=== PATIENT | female | born 1980 | race Caucasian/White ===

== ENCOUNTER 2025-05-31 10:59 | Outpatient (AMB) | payer BC, SELFPAY ==
--- NOTE | 2025-05-31 11:12 | MHC.OFFVIS ---
Intake Visit Reasons: right leg weakness HPI Comments Details: The patient is a 44 year old female presenting with lower back pain. She reports that in January, she experienced severe lower back pain that radiated down her right leg, which was associated with an inability to lift her right leg while lying flat. Her symptoms improved over time with gentle walks. A referral for an MRI was denied by her insurance, and she did not pursue physical therapy due to a negative past experience. For the past few weeks, the patient has been experiencing similar, though less severe, symptoms on her left side with pain in her lower back and around her hip. She also reports associated weakness and difficulty lifting her left leg straight up. She has no history of trauma or accidents and denies any difficulty with urination. She has tried to remain active with walking and hiking, but finds her symptoms can flare up with activity. Review of Systems Narrative Constitutional:?No fever, chills, fatigue, weight loss, or night sweats. HEENT:?No headache, vision changes, hearing loss, nasal congestion, sore throat. Cardiovascular:?No chest pain, palpitations, orthopnea, PND, or leg swelling. Respiratory:?No cough, shortness of breath, wheezing, or hemoptysis. Gastrointestinal:?No nausea, vomiting, abdominal pain, diarrhea, or constipation. Genitourinary:?No dysuria, frequency, incontinence, or hematuria. Musculoskeletal:? Complained of low back pain. Neurological:? Complain of low back pain and sometimes leg pain. Psychiatric:?No anxiety, depression, mood swings, sleep disturbance, or hallucinations. Endocrine:?No heat/cold intolerance, polydipsia, polyuria, or hair/skin changes. Hematologic/Lymphatic:?No easy bruising, bleeding, or lymphadenopathy. Integumentary (Skin):?No rash, lesions, itching, or color changes. Allergic/Immunologic:?No seasonal allergies, hives, or recurrent infections. Physical Exam Neuro Other: Mental Status: Alert and oriented to person, place, and time. Normal attention. Normal spontaneous speech, fluency, and comprehension. No obvious issues with mood and memory. Affect is appropriate. Cranial Nerves: CN II: Visual breaux full to confrontation, visual acuity intact. CN III, IV, : Pupils equal, round, reactive to light and accommodation. Extraocular movements are normal. CN V: Facial sensation is normal. CN VII: Facial movements symmetrical. CN VIII: Hearing intact to bedside conversation is normal. CN IX, X: Palate elevates symmetrically. CN XI: Shoulder shrug and head turn symmetrical. CN XII: Tongue midline without atrophy or fasciculations. Motor: Bulk and tone normal in all extremities. No significant muscle weakness in arms and legs. No drift. Reflexes: Deep tendon reflexes 2+ and symmetric. Plantar response down-going bilaterally. Coordination: [id number] and [id number]-[id number] testing normal. No dysmetria. Gait and Station: No obvious gait abnormality. No ataxia or instability. Sensory: Intact to light touch, pinprick, and vibration. Romberg is negative. Extrapyramidal: Full facial expressions and blinking. No rigidity. Movements are appropriate with no tremor or abnormality. Speech: Normal; no dysarthria or tremor. 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 We discussed that an MRI is primarily useful if we are considering surgery, which is not indicated at this point. I recommended proceeding with an EMG and nerve conduction study to further assess her nerve function. I also advised her to stay active, as activity helps her symptoms. Orders: Orders NE nerve conduction velocity Today M54.16 - Radiculopathy, lumbar region NE electromyogram (EMG) Today M54.16 - Radiculopathy, lumbar region Coding Level of Care Code New Pt Level 3 (65608) Diagnoses Lumbar radicular pain M54.16
--- OUTSIDE RECORDS SUMMARY | 2025-05-31 12:20 | XMS_ITS | Encounter Summary ---
Author Organization [facility] Address [address] [place] [address] Care Team Providers Care Director Of Donor Relations Name Role Phone Ignacia Skinner MD Primary Care Provider [phone] Encounter Details Date Type Department Care Team ([facility] st Contact Info) Description 04/25/2025 Results Follow-Up Adult Medicine [address] [phone] Ignacia Skinner MD [address] [place] [address] Social History Tobacco Use Types Packs/Day Years Used Date Smoking Tobacco: Former Smokeless Tobacco: Never Comments:Quit 10 years ago, prior to that smoked socially Alcohol Use Standard Drinks/Week Comments Not Currently 0 (1 standard drink = 0.6 oz pur e alcohol) Quit 6 months ago Housing Instability Answer Date Recorde d Are you worried that in the next 2 months you may not have stable housing? No 05/19/2024 Food Access & Nutrition Answer Date Rec orded Do you have access to a vari ety of food including fruits and vegetables? Yes 05/19/2024 Access to Healthcare Answer Date Record ed Within the last 3 months, ho w many times did you visit the emergency department for your medical care? 0 05/19/2024 Health Literacy Answer Date Recorded How often do you need to hav e someone help you when you read instructions, pamphlets, or other written material from your doctor or pharmacy? Never 05/19/2024 Caregiver: How often do you need to have someone help you when you read instructions, pamphlets, or other written material from your doctor or pharmacy? Not on file 05/19/2024 Financial Risk Answer Date Recorded How hard is it for you to pa y for the very basics like food, housing, medical care, and air conditioning / heating? Hard 05/19/2024 Transportation Answer Date Recorded Has the lack of transportati on kept you from meetings, work, or from getting things needed for daily living? No Has the lack of transportati on kept you from medical appointments or from getting medications? No 05/19/2024 Social Isolation Answer Date Recorded How often do you feel lonely or isolated from th ose around you? Often 05/19/2024 Food Risk Answer Date Recorded Within the past 12 months we worried whether our food would run out before we got money to buy more. Never true 05/19/2024 Within the past 12 months th e food we bought just didn't last and we didn't have money to get more. Never true 05/19/2024 Dependent Care Answer Date Recorded Do you need help finding or paying for care for your loved ones. For example, child study team director or elderly care for an older adult? No 05/19/2024 Education Answer Date Recorded Do you think completing more education or training, like finishing a GED, going to college, or learning a trade, would be helpful for you? Yes 05/19/2024 Employment and Income Answer Date Recor ded During the last four weeks, have you been actively looking for work? No 05/19/2024 Living Situation Answer Date Recorded What is your living situation? Unrecognized valu e 05/19/2024 Comments No Sex and Gender Information Value Date Recorded Sex Assigned at Not on file Legal Sex Female 11:55 AM EST Gender Identity Not on file Sexual Orientation Not on file documented as of this encounter Plan of Treatment Upcoming Encounters Date Type Department Care Team (Late st Contact Info) Description 06/21/2025 2:[address] [facility] [address] [place] [id number] Radu Omalley MD [address] [facility] [address] [place] [address] 08/15/2025 9:40 AM EDT Office Visit Gastroenterology - [address] [address] Yessica Whitney, [place]ANN[place] [address] [address] 10/24/2025 10:00 AM EDT Office Visit Adult Medicine [address] [phone] Reinaldo Chapa PA [address] [place], [place] documented as of this encounter Visit Diagnoses Not on filedocumented in this encounter Additional Health Concerns Assessment Noted Time PHQ-9 Depression Total Score: 0 04/21/20 25 9:00 AM EST documented as of this encounter Care Teams Director Of Donor Relations Relationship Specialty Start Date End Date Ignacia Skinner MD [address] [place] [address] PCP - General Internal Medicine 05/10/22 documented as of this encounter
--- OUTSIDE RECORDS SUMMARY | 2025-05-31 12:20 | XMS_ITS | Clinical Summary ---
Author Organization [address] Address [address] [place] [phone] Phone Care Team Providers Care [employer] Bar[employer] Attendant Name Role Phone Ignacia Skinner MD Primary Care Provider [phone] Allergies No known active allergies Medications multivitamin (MULTIPLE VITAMINS ORAL) Take 1 tablet by mouth 1 (one) time each day. Active albuterol HFA (PROAIR HFA ; PROVENTIL HFA ; VENTOLIN HFA) 90 mcg/actuation inhaler Inhale 2 puffs by mouth every 4 (four) hours if needed (Wheezing or Shortness of Breath). 3 Active buPROPion XL (WELLBUTRIN XL) 300 mg 24 hr tablet Take 1 tablet (300 mg total) by mouth 1 (one) time each day in the morning. 3 Active estradioL (ESTRACE) 0.01 % (0.1 mg/gram) vaginal cream Apply 0.5 g nightly for two weeks, then MWF 4 Active lisdexamfetamin e (VYVANSE) 40 mg capsule Take 1 capsule (40 mg total) by mouth 1 (one) time each day in the morning. Active cloNIDine (CATAPRES) 0.1 mg tablet Take 1 tablet (0.1 mg total) by mouth at bedtime as needed. 5 Active busPIRone (BUSPAR) 10 mg tablet Take 1 tablet (10 mg total) by mouth 3 (three) times a day if needed. 5 Active methocarbamoL (ROBAXIN) 500 mg tablet Take 1 tablet (500 mg total) by mouth at bedtime as needed for muscle spasms. 10 tablet 5 Active pantoprazole (PROTONIX) 40 mg EC tablet Take 1 tablet (40 mg total) by mouth 1 (one) time each day before breakfast. Do not crush, chew, or split. 90 each 3 5 03/03/20 26 Active cetirizine (ZyrTEC) 10 mg tablet Take 1 tablet (10 mg total) by mouth 1 (one) time each day. Active Active Problems Problem Noted Date Diagnosed Date Lumbar spondylosis 03/18/2025 Assessment & Plan (03/18/2025 1:38 PM EDT): Patient describes sudden onset of severe back spasm that started around mid January, no specific inciting event other than she recalls the day before trying to show her kids how to hula hoop. Soon thereafter she started getting pain from the right low back down the right lateral leg, the right leg felt weak, when she would be laying down in bed she could not lift it off the bed. She was limping, trying to walk uphill or on uneven surfaces was difficult due to subjective weakness and pain. She has been sleeping in her recliner, notes it is painful to lay on her right side. At worst her pain was a 10/10, now is about a 4/10. She does see improvement in the last 1 to 2 weeks. She has been taking Aleve or ibuprofen daily. No bowel bladder incontinence or saddle anesthesia. She has been trying to do some gentle stretches at home, walking for exercise short distances. A few times her leg is giving out on her, once she fell. She had MRI ordered by PCP, insurance denied it. Patient had lumbar spine x-ray 03/01/2025 [facility] with minimal degenerative changes, no significant foraminal narrowing, also compared with abdominal CT sagittal views of the spine from March 2024. We reviewed imaging together on the computer. Ms. Alatorre has right low back and lateral leg pain, seems to be improving with time. There may also be a component of right SI joint pain. I gave prescription for physical therapy, name of acupuncturists, we discussed conservative treatment options, all questions answered. I asked her to call with any worsening symptoms or questions. If she has not improved after physical therapy I think we should pursue lumbar spine MRI. If it ends up a component of SI joint pain, she may want to consider cortisone injection. Subclinical hypothyroidism 10/26/2024 Vitamin D deficiency 10/26/2024 Hemorrhagic cyst of left ovary 05/24/2024 Assessment & Plan (05/24/2024 12:24 PM EST): I explained to Payton that her cyst will likely resolve on its own, and given she is relatively asymptomatic, would recommend follow up US 3 months from last. This would be in August. She will schedule this. Will discuss results when available. Rectus diastasis 08/15/2023 Overview (03/25/2024): Last Assessment & Plan: Difficult to assess on exam, but seems c/w history Referred to PT. Explained some women require surgical intervention. Vaginal atrophy 08/15/2023 Overview (03/25/2024): Last Assessment & Plan: Offered options of oil based lubricants, but she declined. She will try Estrace cream with her finger. Obesity 11/18/2018 Fibromyalgia 07/22/2017 Overview (03/25/2024): Previously took ibuprofen or Aleve, exercise. Continues to exercise and use Tylenol with few sx. Anxiety and depression 05/08/2017 Overview (03/25/2024): Following with psychiatry and behavioral health clinical pharmacist, continues to follow with therapist Last Assessment & Plan: Reviewed relative safety of antidepressants in and small risks of withdrawal and PPH. She will co ntinue to follow with therapist and keep track of sx and consider restarting meds prn. Asthma 08/08/2016 Overview (03/25/2024): Was taking daily ADvair and using fast acting hardly ever prir to . Now feels like she is getting a little wheezy more than usual, ? Getting a cold. Never hospitalized in past. Has fast acting at home. Last Assessment & Plan: Reviewed 1/3 get better, /3 get worse, 1/3 stay same. Should get peak flow meter. Discussed red, green , yellow. Discussed possible need for inhaled coritosteroid is using fast acting inhaler frequently. She will let us know and we can start ppulmicort. Myopia with astigmatism 07/10/2016 Esophageal reflux 06/14/2005 Encounters Date Type Department Care Team Description 04/25/2025 Results Follow-Up [address] [phone] Ignacia Skinner MD 04/22/2025 9:15 AM EST Lab Draw [address] PE (physical exam), annual 04/21/2025 9:30 AM EST Office Visit [address] [phone] Ignacia Skinner MD PE (physical exam), annual (Primary Dx); Screening for colon cancer 03/29/2025 1:15 PM EDT Office Visit [address] [phone] Reinaldo Chapa PA Acute right-sided low back pain without sciatica (Primary Dx); Right leg weakness 03/18/2025 10:00 AM EDT Consult Neurosurgery [facility] [address] [facility] [address] [place] [phone] Perla Barnes PA Lumbar spondylosis (Primary Dx) 03/14[facility] [address] [place] [phone] Sade Mijares OT 03/01/2025 1:22 PM EDT - 03/01/2025 11:59 PM EDT Hospital Encounter [address] [phone] Acute right-sided low back pain without sciatica; Right leg weakness Discharge Disposition: Home or Self Care 03/01/2025 1:00 PM EDT Office Visit [address] [place] [phone] Sarah Langley PA Acute right-sided low back pain without sciatica (Primary Dx); Right leg weakness from Last 3 Months Immunizations Immunization Administration Dates Next Due DTP 01/09/1985, 1,1979,1979,1979 Hepatitis B (Hqjafto-C-Ekimr , Recombivax HB-Adult) 19yo and older 06/06/2006,03/06/2006,02/06/2006 Influenza Quadravalent, MDCK , 0.5ml, preservative free (Flucelvax) 6mo and older 07/18/2021,02/17/2020,05/19/2019,2017 Influenza trivalent, 0.5mL, preservative free (Fluarix; FluLaval; Fluzone) ages 6mo and older (Afluria) 3 years and older 03/19/2024 MMR, measles mumps and rubel la Live (Priorix; M-M-R II) 12mo and older 10/04/2018,07/22/1991,11/03/1980 OPV 01/09/1985, 1,1979,1979 PPD Test 03/08/2009 [employer] SARS-CoV-2 COVID-19, mRNA, LNP-S, preservative free 05/10/2021 Pneumococcal conjugate 20 va lent (Prevnar 20, PCV 20) 2mo and older 08/28/2022 Td Tetanus diptheria (Tdvax) 7yo and older 06/09/2001 Tdap Tetanus diptheria acell ular pertussis (Boostrix; Adacel) 7yo and older 07/17/2018,07/22/2017 Surgical History Surgery Date Site/Laterality Comments FLEXIBLE SIGMOIDOSCOPY 05/11 CHOLECYSTECTOMY SECTION 2018 SECTION, LOW TRANSVERSE 10/01/2018 GALLBLADDER SURGERY 06/2009 Medical History Medical History Date Comments Asthma 08/08/2016 Esophageal reflux 06/14/2005 Fibromyalgia 07/22/2017 Anxiety and depression 05/08/2017 Following with psychiatry and behavioral health clinical pharmacist Irritable bowel syndrome 06/14/2005 diarrhe a predominant type. Myopia with astigmatism 07/10/2016 cardiac anomaly affect ing , antepartum 05/26/2018 Glaucoma suspect of both eyes Chronic right upper quadrant pain Adhd Gestational diabetes 06/2018 Low back pain January 2025 Family History Medical History Relation Name Comments Alcohol abuse Father Jamal Kamara Depression Father Jamal Kamara Diabetes Father Jamal Kamara diet cont Kidney disease Father Jamal Kamara Other: Cirrhosis of liver Father Jamal Kamara h/ o alcohol, stomach ulcers Other: Other Father Jamal Kamara temp colostomy, unsure why Other: kidney disease Father Jamal Kamara Coronary artery disease Maternal Grandfather Jagdeep mcdonald Glaucoma Maternal Grandfather Jagdeep Ugarte Heart attack Maternal Grandfather Jagdeep Ugarte Heart disease Maternal Grandfather Jagdeep Ugarte Other: Other Maternal Grandfather Jagdeep Ugarte digesti ve issues, most of colon removed Hypertension Maternal Grandmother Trista Ugarte Other: fibromyalgia Maternal Grandmother Trista Ugarte Hypertension Mother Elly Tidell Other: fibromyalgia Mother Elly Tidell reflux, htn Breast cancer Mother's Brother 1 M Tisdell Breast cancer Mother's Brother 2 M Tisdell Breast cancer Other m uncle 60s mat. uncle Depression Paternal Grandfather No Known Problems Paternal Grandmother Blindness Neg Hx Cataracts Neg Hx Cervical cancer Neg Hx Colon cancer Neg Hx Macular degeneration Neg Hx Ovarian cancer Neg Hx Strabismus Neg Hx Uterine cancer Neg Hx Relation Name Status Comments Father Jamal Kamara Alive Maternal Grandfather Jagdeep Ugarte Maternal Grandmother Trista Ugarte Mother Elly Tidell Alive Mother's Brother 1 M Tisdell Alive Mother's Brother 2 M Tisdell Alive Other m uncle 60s Alive Paternal Grandfather Paternal Grandmother Social History Tobacco Use Types Packs/Day Years [...] for your loved ones. For example, child and family services specialist or elderly care for an older adult? [...] on file Sexual Orientation Not on file Obstetrics History Para Term AB IAB SAB Ectopic Multiple Livin g Live Births 1 1 1 1 2 1 Date Outcome GA Total Labor Labor/2nd/3rd Weight Sex Type Anes PTL Erika A1 A5 Name Clin Term M CS-Un spec Living Term M CS-Un spec Living Last Filed Vital Signs Vital Sign Reading Time Taken Comments Blood Pressure 116/78 04/21/2025 9:43 AM EST Pulse 92 04/21/2025 9:43 AM EST Temperature 36.6 C (97.8 F) 04/21/2025 9:43 AM EST Respiratory Rate 14 04/21/2025 9:43 AM EST Oxygen Saturation 99% 04/21/2025 9:43 AM EST Inhaled Oxygen Concentration - - Weight 75.8 kg (167 lb) 04/21/2025 9:43 AM EST Height 157.5 cm (5' 2 ) 04/21/2025 9:43 AM EST Body Mass Index 30.54 04/21/2025 9:43 AM EST Plan of Treatment Upcoming Encounters Date Type Department Care Team (Late st Contact Info) Description 06/21/2025 2:30 PM EST Appointment [facility] Endoscopy [address] [place] [phone] Radu Omalley MD [address] [address] 08/15/2025 9:40 AM EDT Office Visit Gastroenterology - [address] [phone] Yessica Whitney NP [address] [address] 10/24/2025 10:00 AM EDT Office Visit Adult Medicine [address] [phone] Reinaldo Chapa PA [address] [place] [phone] Health Maintenance Due Date Last Done Comments Colorectal Cancer Screening: Colonoscopy 1979 Drug Screen 1979 Non-Opioid Controlled Substance Agreement 1979 HPV Vaccines (1 - 3-dose SCDM series) 2006 Hepatitis C Screening 05/17/2022 COVID-19 Vaccine ( season) 2025 06/05/2021, 05/10/2021, 09/07/2020, Additional history exists Influenza Vaccine (#1) 2025 , 07/18/2021, 02/17/2020, Additional history exists Social Influencers of Health Screening 04/21/2026 04/21/2025, 05/19/2024 Breast Cancer Screening 07/20/2026 07/20/19, 07/08/2023, 07/03/2022, Additional history exists Cervical Cancer Screening: HPV 09/06/2026 09/06/2021 DTaP,Tdap,and Td Vaccines (9 - Td or Tdap) 07/17/2028 07/17/2018, 07/22/2017, 06/09/2001, Additional history exists Cholesterol Screening (Lipid Panel) 04/22/2030 04/22/2025, 10/09/2023, 10/09/2023 RSV Immunization Adult Patients (1 - 1-dose 75+ series) 2054 IPV Vaccines Completed 01/09/1985, 08/1980, 1979, Additional history exists Hepatitis B Vaccines Completed 06/06/2006, 03/06/2006, 02/06/2006 HIV Screening Completed 03/12/2018 MMR Vaccines Completed 10/04/2018, 07/10, 11/03/1980 Pneumococcal Vaccine: Pediatrics (0 to 5 Years) and At-Risk Patients (6 to 49 Years) Completed 08/28/2022 Depression Screening Completed 04/21/2025 HIB Vaccines Aged Out No longer eligi ble based on patient's age to complete this topic Hepatitis A Vaccines Aged Out No long er eligible based on patient's age to complete this topic Meningococcal ACWY Vaccine Aged Out N o longer eligible based on patient's age to complete this topic Meningococcal B Vaccine Aged Out No l onger eligible based on patient's age to complete this topic RSV Immunization Patients Under 20 months Aged Out No longer eligible based on patient's age to complete this topic Varicella Vaccines Aged Out No longer eligible based on patient's age to complete this topic Goals Goal Patient Goal Type Associated Problems Recent Progress Patient-Stated? Author Autogenerat ed Goal Care Plan Autogenerated Problem No Raheel Durán Procedures Procedure Name Priority Date/Time Associated Diagnosis Comments CBC WITH AUTO DIFFERENTIAL Routine 04/22/2025 9:20 AM EST PE (physical exam), annual CBC AND DIFFERENTIAL Routine 04/22/2025 9:20 AM EST PE (physical exam), annual COMPREHENSIVE METABOLIC PANEL Routine 04/22/2025 9:20 AM EST PE (physical exam), annual LIPID PANEL WITH REFLEX TO DIRECT LDL Routine 04/22/2025 9:20 AM EST PE (physical exam), annual HEMOGLOBIN A1C Routine 04/22/2025 9:20 AM EST PE (physical exam), annual XR LUMBAR SPINE 4+ VIEWS Routine 03/01/2025 1:34 PM EDT Acute right-sided low back pain without sciatica Right leg weakness MG MAMMO DIGITAL SCREENING W ERNESTO BILAT Routine 07/20/2024 4:29 PM EST Encounter for screening mammogram for breast cancer HPV Routine 09/06/2021 HIV SCREENING Routine 03/12/2018 from Last 3 Months or Most Recently Relevant to Health Maintenance Results * (ABNORMAL) Lipid panel with reflex to direct LDL (04/22/2025 9:20 AM EST) Cholesterol 188 0 - 200 mg/dL LAB CHEMISTRY METHOD 04/22/2025 1:44 PM EST [facility] Triglycerides 40 0 - 150 mg/dL LAB CHEMISTRY METHOD 04/22/2025 1:44 PM EST [facility] HDL 75 >=40 mg/dL LAB CHEMISTRY METHOD 04/22/2025 1:44 PM EST [facility] LDL Calculated 105(H) 0 - 100 mg/dL LAB CHEMISTRY METHOD 04/22/2025 1:44 PM EST [facility] Comment:Estimated LDL Calcul ated using equation: Total cholesterol - HDL cholesterol - (Triglycerides/5) VLDL Cholesterol Justice 8 mg/dL LAB CHEMISTRY METHOD 04/22/2025 1:44 PM [facility] Non HDL Chol. (LDL+VLDL) 113 <145 mg/dL LAB CHEMISTRY METHOD 04/22/2025 1:44 PM [facility] Chol/HDL Ratio 2.5 0.0 - 4.4 LAB CHEMISTRY METHOD 04/22/2025 1:44 PM [facility] Blood Venous blood specimen / Unknown Venipuncture / Unknown 04/22/2025 9:20 AM EST 04/22/2025 9:20 AM EST us Ignacia Skinner MD LAB BLOOD ORDERABLES Final Resul t [facility] [address] [place] [address], * (ABNORMAL) CBC auto differential (04/22/2025 9:20 AM EST) WBC 6.9 4.8 - 10.8 K/mcL LAB HEMETOLOGY METHOD 04/22/2025 11:24 AM [facility] RBC 4.50 3.80 - 4.80 [facility] LAB HEMETOLOGY METHOD 04/22/2025 11:24 AM [facility] Hemoglobin 11.6 11.5 - 16.0 g/dL LAB HEMETOLOGY METHOD 04/22/2025 11:24 AM [facility] Hematocrit 37.2 35.0 - 47.0 % LAB HEMETOLOGY METHOD 04/22/2025 11:24 AM [facility] MCV 83.2 79.0 - 98.0 FL LAB HEMETOLOGY METHOD 04/22/2025 11:24 AM [facility] MCH 26.0(L) 27.0 - 32.0 pcg LAB HEMETOLOGY METHOD 04/22/2025 11:24 AM [facility] MCHC 31.2(L) 32.0 - 37.0 g/dL LAB HEMETOLOGY METHOD 04/22/2025 11:24 AM [facility] RDW 14.6 11.0 - 15.0 % LAB HEMETOLOGY METHOD 04/22/2025 11:24 AM [facility] Platelets 339 130 - 400 K/mcL LAB HEMETOLOGY METHOD 04/22/2025 11:24 AM [facility] MPV 9.5 7.0 - 11.0 FL LAB HEMETOLOGY METHOD 04/22/2025 11:24 AM [facility] NRBC 0.0 <1.0 % LAB HEMETOLOGY METHOD 04/22/2025 11:24 AM [facility] NRBC Absolute 0.00 <0.10 K/mcL LAB HEMETOLOGY METHOD 04/22/2025 11:24 AM [facility] Neutrophils Relative 58.3 % LAB HEMETOLOGY METHOD 04/22/2025 11:24 AM [facility] Lymphocytes Relative 25.1 % LAB HEMETOLOGY METHOD 04/22/2025 11:24 AM [facility] Monocytes Relative 12.1 % LAB HEMETOLOGY METHOD 04/22/2025 11:24 AM [facility] Eosinophils Relative 3.5 % LAB HEMETOLOGY METHOD 04/22/2025 11:24 AM [facility] Basophils Relative 0.7 % LAB HEMETOLOGY METHOD 04/22/2025 11:24 AM [facility] Immature Granulocytes Relative 0.3 % LAB HEMETOLOGY METHOD 04/22/2025 11:24 AM [facility] Neutrophils Absolute 4.03 1.50 - 7.00 [facility] HEMETOLOGY METHOD 04/22/2025 11:24 AM EST [facility] Lymphocytes Absolute 1.74 1.00 - 5.00 [facility] LAB HEMETOLOGY METHOD 04/22/2025 11:24 AM EST [facility] Monocytes Absolute 0.84 0.20 - 1.00 [facility] HEMETOLOGY METHOD 04/22/2025 11:24 AM EST [facility] Eosinophils Absolute 0.24 0.00 - 0.50 [facility] HEMETOLOGY METHOD 04/22/2025 11:24 AM EST [facility] Basophils Absolute 0.05 0.00 - 0.20 [facility] HEMETOLOGY METHOD 04/22/2025 11:24 AM [facility] Immature Granulocytes Absolute 0.02 0.00 - 0.03 [facility] HEMETOLOGY METHOD 04/22/2025 11:24 AM [facility] Blood Venous blood specimen / Unknown Venipuncture / Unknown 04/22/2025 9:20 AM EST 04/22/2025 9:20 AM EST us Ignacia Skinner MD LAB BLOOD ORDERABLES Final Resul t [facility] [address] [place] [address], * Hemoglobin A1c (04/22/2025 9:20 AM EST) Hemoglobin A1C 5.6 <6.5 % LAB CHEMISTRY METHOD 04/22/2025 10:51 AM EST [facility] Mean Bld Glu Estim. 114 mg/dL LAB CHEMISTRY METHOD 04/22/2025 10:51 AM EST [facility] Blood Venous blood specimen / Unknown Venipuncture / Unknown 04/22/2025 9:20 AM EST 04/22/2025 9:20 AM EST us Ignacia Skinner MD LAB BLOOD ORDERABLES Final Resul t [facility] [address] [place] [address], [place] [phone] * Comprehensive metabolic panel (04/22/2025 9:20 AM EST) Sodium 138 133 - 145 mmol/L LAB CHEMISTRY METHOD 04/22/2025 1:26 PM [facility] Potassium 3.9 3.5 - 5.5 mmol/L LAB CHEMISTRY METHOD 04/22/2025 1:26 PM [facility] Chloride 103 96 - 110 mmol/L LAB CHEMISTRY METHOD 04/22/2025 1:26 PM [facility] CO2 28 21 - 32 mmol/L LAB CHEMISTRY METHOD 04/22/2025 1:26 PM [facility] Anion Gap 7 3 - 11 LAB CHEMISTRY METHOD 04/22/2025 1:26 PM [facility] Glucose 93 70 - 100 mg/dL LAB CHEMISTRY METHOD 04/22/2025 1:26 PM [facility] BUN 12 5 - 25 mg/dL LAB CHEMISTRY METHOD 04/22/2025 1:26 PM [facility] Creatinine 0.90 0.50 - 1.10 mg/dL LAB CHEMISTRY METHOD 04/22/2025 1:26 PM [facility] eGFR 81 >=60 mL/min/1. 73m2 LAB CHEMISTRY METHOD 04/22/2025 1:26 PM [facility] Comment:Calculation based on the Chronic Kidney Disease Epidemiology Collaboration (CKD-EPI) equation refit without adjustment for race. BUN/Creatinine Ratio 13.3 LAB CHEMISTRY METHOD 04/22/2025 1:26 PM [facility] Calcium 8.7 8.5 - 10.5 mg/dL LAB CHEMISTRY METHOD 04/22/2025 1:26 PM [facility] AST (SGOT) 20 10 - 42 unit/L LAB CHEMISTRY METHOD 04/22/2025 1:26 PM [facility] ALT (SGPT) 26 10 - 60 unit/L LAB CHEMISTRY METHOD 04/22/2025 1:26 PM [facility] Alkaline Phosphatase 71 42 - 121 unit/L LAB CHEMISTRY METHOD 04/22/2025 1:26 PM [facility] Total Protein 7.2 6.0 - 8.0 g/dL LAB CHEMISTRY METHOD 04/22/2025 1:26 PM [facility] Albumin 3.7 3.2 - 5.0 g/dL LAB CHEMISTRY METHOD 04/22/2025 1:26 PM [facility] Total Bilirubin 0.4 0.0 - 1.4 mg/dL LAB CHEMISTRY METHOD 04/22/2025 1:26 PM [facility] Blood Venous blood specimen / Unknown Venipuncture / Unknown 04/22/2025 9:20 AM EST 04/22/2025 9:20 AM EST us Ignacia Skinner MD LAB BLOOD ORDERABLES Final Resul t [facility] [address] [place] [address], * XR Lumbar Spine 4+ Views (03/01/2025 1:34 PM EDT) Anatomical Region Laterality Modality Spine, L-spine Radiographic Siena ging 03/01/2025 10:2 8 PM EDT Narrative 03/01/2025 10:29 PM EDT Lumbosacral spine, 4 views. History right low back and lower extremity pain and weakness. Vertebral bodies are maintained in height. Disc spaces are maintained in height. There are mild hypertrophic changes in the facet joints at L4-5 and L5-S1 levels. There is IUD centrally in the pelvis. There is minimal levoscoliosis. There is arm moderate constipation. CONCLUSIONS: Mild levoscoliosis. Mild degenerative changes as detailed. Constipation. -------- FINAL REPORT -------- Dictated By: Breanna Friedman Dictated Date: 03/01/2025 22:28 ET Assigned Physician: Breanna Friedman Reviewed and Electronically Signed By: Breanna Friedman Signed Date: 03/01/2025 22:29 ET Workstation ID: [id number] Transcribed By: Self Edit Transcribed Date: 03/01/2025 22:28 ET Procedure Note Breanna Friedman MD - 03/01/2025 Lumbosacral spine, 4 views. History right low back and lower extremity pain and weakness. Vertebral bodies are maintained in height. Disc spaces are maintained inheight. There are mild hypertrophic changes in the facet joints at L4-5and L5-S1 levels. There is IUD centrally in the pelvis. There is minimallevoscoliosis. There is arm moderate constipation. CONCLUSIONS: Mild levoscoliosis. Mild degenerative changes as detailed.Constipation. -------- FINAL REPORT -------- Dictated By: Breanna Friedman Dictated Date: 03/01/2025 22:28 ET Assigned Physician: Breanna Friedman Reviewed and Electronically Signed By: Breanna Friedman Signed Date: 03/01/2025 22:29 ET Workstation ID: [id number] Transcribed By: Self Edit Transcribed Date: 03/01/2025 22:28 ET Sarah MÁRQUEZ IMG XR PROCEDURES Final Result * MG Mammo Digital Screening w Ernesto bilat (07/20/2024 4:29 PM EST) Anatomical Region Laterality Modality Breast Bilateral Mammography 07/21/2024 9:51 AM EST Impressions 07/21/2024 9:53 AM EST No mammographic evidence of malignancy. BI-RADS CATEGORY: 1 - NEGATIVE RECOMMENDATION: Screening bilateral mammogram is recommended in 1 year. Mammo Location: [facility], [address] [place] [address], [id number], . -------- FINAL REPORT -------- Dictated By: Breanna Friedman Dictated Date: 07/21/2024 09:51 ET Assigned Physician: Breanna Friedman Reviewed and Electronically Signed By: Breanna Friedman Signed Date: 07/21/2024 09:53 ET Workstation ID: [id number] Transcribed By: Self Edit Transcribed Date: 07/21/2024 09:51 ET Narrative 07/21/2024 9:53 AM EST Bilateral screening mammogram. CLINICAL: 44 years old, Female, routine annual exam. COMPARISON: Prior mammograms, latest from 07/08/2023. TECHNIQUE: Bilateral MLO and CC views were obtained digitally with 2-D C views and 3-D mammogram (digital breast tomosynthesis). Computer-aided detection was utilized in evaluation of this exam (CAD). FINDINGS: There is no evidence of suspicious mass or architectural distortion. No worrisome calcifications are evident. There has been no significant change from prior exam(s). BREAST DENSITY: B - There are scattered areas of fibroglandular density. Procedure Note Breanna Friedman MD - 07/21/2024 Bilateral screening mammogram. CLINICAL: 44 years old, Female, routine annual exam. COMPARISON: Prior mammograms, latest from 07/08/2023. TECHNIQUE: Bilateral MLO and CC views were obtained digitally with 2-D Cviews and 3-D mammogram (digital breast tomosynthesis). Computer-aideddetection was utilized in evaluation of this exam (CAD). FINDINGS: There is no evidence of suspicious mass or architectural distortion. Noworrisome calcifications are evident. There has been no significantchange from prior exam(s). BREAST DENSITY: B - There are scattered areas of fibroglandular density. IMPRESSION: No mammographic evidence of malignancy. BI-RADS CATEGORY: 1 - NEGATIVE RECOMMENDATION: Screening bilateral mammogram is recommended in 1 year. Mammo Location: [facility], [address] [place] [address], [id number], . -------- FINAL REPORT -------- Dictated By: Breanna Friedman Dictated Date: 07/21/2024 09:51 ET Assigned Physician: Breanna Friedman Reviewed and Electronically Signed By: Breanna Friedman Signed Date: 07/21/2024 09:53 ET Workstation ID: [id number] Transcribed By: Self Edit Transcribed Date: 07/21/2024 09:51 ET Ignacia Skinner MD IMG BI PROCEDURES Final Result * Cervical Cancer Screening: HPV (09/06/2021) Cervical Cancer Screening: HPV Negative, abstracted Historical Provider HEALTH MAINTENANCE Final Result * HIV Screening (03/12/2018) HIV Screening Abstracted Historical Provider HEALTH MAINTENANCE Final Result from Last 3 Months or Most Recently Relevant to Health Maintenance Additional Health Concerns Active Problems Noted Date Diagnosed Date Autogenerated Problem 04/28/2025 Insurance [facility] Care Teams Racecourse Barrier Attendant Relationship Specialty Start Date End Date Ignacia Skinner MD [address] [place] [phone] PCP - General Internal Medicine 05/10/22
--- OUTSIDE RECORDS SUMMARY | 2025-05-31 12:20 | XMS_ITS | Clinical Summary ---
Author Organization [facility] Address [address] [place] [address] Care Team Providers Care Training Assistant Name Role Phone Pcp, No Primary Care Provider Unavailabl e Allergies No known active allergies Medications * This document contains information received from the source organization and may not represent a complete record from that organization. loratadine (CLARITIN) 10 MG tablet Loratadine 10 MG Oral Tablet ; Start Date: 02/21/2014; End Date: 4 Active OMEprazole (PRILOSEC OTC) 20 MG tablet PriLOSEC OTC 20 MG Oral Tablet Delayed Release ; Start Date: 02/21/2014; End Date: 4 Active albuterol (PROAIR HFA) 108 (90 BASE) MCG/ACT inhaler ProAir HFA 108 (90 Base) MCG/ACT Inhalation Aerosol Solution INHALE 1 TO 2 PUFFS EVERY 4 TO 6 HOURS NEEDED. ; Start Date: 02/21/2014; End Date: 4 Active MULTIPLE VITAMIN IV Multiple Vitamin Oral Tablet ; Start Date: 02/21/2014; End Date: 4 Active buPROPion (WELLBUTRIN XL) 150 MG 24 hr tabletIndications :Depression with anxiety Take 1 tablet (150 mg total) by mouth every morning. Swallow whole; do not crush, chew, or divide. 30 tablet 1 6 Active ADVAIR DISKUS 250-50 MCG/DOSE diskus inhalerIndication s:Uncomplicated asthma INHALE 1 PUFF BY MOUTH TWICE DAILY. RINSE MOUTH AFTER USE 60 puff 5 7 Active montelukast (SINGULAIR) 10 MG tabletIndications :Mild intermittent asthma without complication TAKE 1 TABLET BY MOUTH EVERY EVENING 30 tablet 6 7 Active Active Problems Problem Noted Date Diagnosed Date Anxiety 11/20/2015 Vagina, candidiasis 09/15/2015 Depression with anxiety 04/27/2015 Dizziness and giddiness 01/05/2015 Palpitations 01/05/2015 Asthma 03/23/2014 Esophageal reflux 02/21/2014 Myalgia and myositis 02/21/2014 Resolved Problems Problem Noted Date Diagnosed Date Resolved Date Contraceptive management 02/21/2014 Immunizations Immunization Administration Dates Next Due Influenza Inactivated/Split Preservative Free IM 03/09/2014 PPD Test 10/21/2015 Family History Medical History Relation Name Comments Hypertension Father Fibromyalgia Mother Hypertension Mother Other Mother palpitation Relation Name Status Comments Father Mother Social History Tobacco Use Types Packs/Day Years Used Date Smoking Tobacco: Former Tobacco Cessation:Counseling Given: No Alcohol Use Standard Drinks/Week Comments Yes 2 (1 standard drink = 0.6 oz pur e alcohol) Comments No Sex and Gender Information Value Date Recorded Sex Assigned at Not on file Legal Sex Female 6:16 PM EDT Gender Identity Not on file Sexual Orientation Not on file 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 Not on file Not on file Not on file Last Filed Vital Signs Vital Sign Reading Time Taken Comments Blood Pressure 104/64 11/27/2015 6:56 PM EDT Pulse 74 11/27/2015 6:56 PM EDT Temperature 36.8 C (98.2 F) 11/27/2015 6:56 PM EDT Respiratory Rate 14 11/27/2015 6:56 PM EDT Oxygen Saturation 100% 11/27/2015 6:56 PM EDT Inhaled Oxygen Concentration - - Weight 62.1 kg (137 lb) 11/27/2015 6:56 PM EDT Height 157.5 cm (5' 2 ) 11/27/2015 6:56 PM EDT Body Mass Index 25.06 11/27/2015 6:56 PM EDT Plan of Treatment Health Maintenance Due Date Last Done Comments Hepatitis C Virus Screening 1979 HIV Screening 1992 DTaP/Tdap/Td Vaccines (1 - Tdap) 1998 Hepatitis B Vaccines (1 of 3 - 19+ 3-dose series) 06/09 Pneumococcal Vaccine: Pediat darshan (0-5 Years) and At-Risk Patients (6 to 49 Years) (1 of 2 - PCV) 1998 Pap Smear (Ages 21-65) 2000 Mammogram 2019 Colonoscopy 2024 Influenza Vaccine 01/07/2025 03/09/2014 COVID-19 Vaccine (2024- season) 2025 HPV Vaccines (No Doses Required) Completed Insurance [id number] [place] [address] PPO Care Teams Training Assistant Relationship Specialty Start Date End Date Pcp, No PCP - General General Medicine 07/26/22
--- OUTSIDE RECORDS SUMMARY | 2025-05-31 12:20 | XMS_ITS | Encounter Summary ---
Author Organization [facility] Address [address] [place] [address] Care Team Providers Care Lacquer Sizer Name Role Phone Alice Saldaña PA-C Primary Care Provider [phone] Pcp, No Primary Care Provider Unavailabl e Encounter Details Date Type Department Care Team (Late st Contact Info) Description 02/19/2016 Scanned Document [facility] [address] [place] [phone] Alice Saldaña PA-C [address] [facility] [address] [place] [address] Social History Tobacco Use Types Packs/Day Years Used Date Smoking Tobacco: Former Alcohol Use Standard Drinks/Week Comments Yes 2 [...] file Not on file Not on file documented as of this encounter Plan of Treatment Not on file documented as of this encounter Visit Diagnoses Not on filedocumented in this encounter Care Teams Lacquer Sizer Relationship Specialty Start Date End Date Alice Saldaña PA-C PCP - General Internal Medicine 12/25/14 07/25/22 Pcp, No PCP - General General Medicine 07/26/22 documented as of this encounter
--- OUTSIDE RECORDS SUMMARY | 2025-05-31 12:20 | XMS_ITS | Encounter Summary ---
Author Organization [facility] Address [address] [place] [address] Care Team Providers Care Graphite Disk Assembler Name Role Phone Alice Saldaña PA-C Primary Care Provider + [phone] Pcp, No Primary Care Provider Unavailabl e Encounter Details Date Type Department Care Team (Late st Contact Info) Description 01/05/2015 Scanned Document [address] [phone] Provider, Generic Social History Tobacco Use Types Packs/Day Years Used Date Smoking Tobacco: Never Assessed Comments Unknown Sex and Gender Information Value Date Recorded Sex Assigned at Not on file Legal Sex Female 6:16 PM EDT Gender Identity Not on file Sexual Orientation Not on file documented as of this encounter Plan of Treatment Not on file documented as of this encounter Procedures Procedure Name Priority Date/Time Associated Diagnosis Comments ECG 12-LEAD 01/05/2015 documented in this encounter Results * ECG 12-LEAD (01/05/2015) Narrative 01/05/2015 Ordered by an unspecified provider. us Generic Provider ECG ORDERABLES Final Result documented in this encounter Visit Diagnoses Not on filedocumented in this encounter Care Teams Graphite Disk Assembler Relationship Specialty Start Date End Date Alice Saldaña PA-C PCP - General Internal Medicine 12/25/14 07/25/22 Pcp, No PCP - General General Medicine 07/26/22 documented as of this encounter
--- OUTSIDE RECORDS SUMMARY | 2025-05-31 12:20 | XMS_ITS | Encounter Summary ---
Author Organization [facility] Address [address] [place] [address] Care Team Providers Care Die Casting Machine Setter Name Role Phone Alice Saldaña PA-C Primary Care Provider [phone] Pcp, No Primary Care Provider Unavailabl e Encounter Details Date Type Department Care Team (Late st Contact Info) Description 02/08/2016 Scanned Document [facility] [address] [place] [phone] Alice Saldaña PA-C 136 [facility] [address] [place] [address] Social History Tobacco Use Types Packs/Day Years [...] on filedocumented in this encounter Care Teams Die Casting Machine Setter Relationship Specialty Start Date End Date Alice Saldaña PA-C PCP - General Internal Medicine 12/25/14 07/25/22 Pcp, No PCP - General General Medicine 07/26/22 documented as of this encounter
--- OUTSIDE RECORDS SUMMARY | 2025-05-31 12:20 | XMS_ITS | Encounter Summary ---
Author Organization [facility] Address [address] [place] [address] Care Team Providers Care Television Mechanic Name Role Phone Alice Saldaña PA-C Primary Care Provider [phone] Pcp, No Primary Care Provider Unavailabl e Encounter Details Date Type Department Care Team (Late st Contact Info) Description 04/11/2016 Scanned Document [facility] [address] [place] [phone] Alice Saldaña PA-C 136 [facility] [address] [place] [address] Social History Tobacco Use Types Packs/Day Years [...] on filedocumented in this encounter Care Teams Television Mechanic Relationship Specialty Start Date End Date Alice Saldaña PA-C PCP - General Internal Medicine 12/25/14 07/25/22 Pcp, No PCP - General General Medicine 07/26/22 documented as of this encounter
--- OUTSIDE RECORDS SUMMARY | 2025-05-31 12:20 | XMS_ITS | Encounter Summary ---
Author Organization [facility] Address [address] [place] [address] Care Team Providers Care Mold Forms Builder Name Role Phone Alice Saldaña PA-C Primary Care Provider [phone] Pcp, No Primary Care Provider Unavailabl e Encounter Details Date Type Department Care Team (Late st Contact Info) Description 04/02/2016 Scanned Document [facility] [address] [place] [phone] Alice Saldaña PA-C 136 [facility] [address] [place] [address] Social History Tobacco Use Types Packs/Day Years [...] on filedocumented in this encounter Care Teams Mold Forms Builder Relationship Specialty Start Date End Date Alice Saldaña PA-C PCP - General Internal Medicine 12/25/14 07/25/22 Pcp, No PCP - General General Medicine 07/26/22 documented as of this encounter
--- OUTSIDE RECORDS SUMMARY | 2025-05-31 12:20 | XMS_ITS | Encounter Summary ---
Author Organization [facility] Address [address] [place] [address] Care Team Providers Care Laundromat Worker Name Role Phone Alice Saldaña PA-C Primary Care Provider + [phone] Pcp, No Primary Care Provider Unavailabl e Encounter Details Date Type Department Care Team (Late st Contact Info) Description 04/27/2015 Scanned Document [address] [phone] Provider, Generic Social History Tobacco Use Types Packs/Day Years Used Date Smoking Tobacco: Former Alcohol Use Standard Drinks/Week Comments Yes 2 (1 standard drink = 0.6 oz pur e alcohol) Comments Unknown Sex and Gender Information Value [...] on filedocumented in this encounter Care Teams Laundromat Worker Relationship Specialty Start Date End Date Alice Saldaña PA-C PCP - General Internal Medicine 12/25/14 07/25/22 Pcp, No PCP - General General Medicine 07/26/22 documented as of this encounter
--- OUTSIDE RECORDS SUMMARY | 2025-05-31 12:20 | XMS_ITS | Encounter Summary ---
Author Organization [facility] Address [address] [place] [address] Care Team Providers Care Extrusion Bender Name Role Phone Alice Saldaña PA-C Primary Care Provider [phone] Pcp, No Primary Care Provider Unavailabl e Encounter Details Date Type Department Care Team (Late st Contact Info) Description 01/03/2016 Scanned Document [facility] [address] [place] [phone] Alice Saldaña PA-C 136 [facility] [address] [place] [address] Social History Tobacco Use Types Packs/Day Years [...] on filedocumented in this encounter Care Teams Extrusion Bender Relationship Specialty Start Date End Date Alice Saldaña PA-C PCP - General Internal Medicine 12/25/14 07/25/22 Pcp, No PCP - General General Medicine 07/26/22 documented as of this encounter
--- OUTSIDE RECORDS SUMMARY | 2025-05-31 12:20 | XMS_ITS | Encounter Summary ---
Author Organization [facility] Address [address] [place] [address] Care Team Providers Care Liability Claims Adjuster Name Role Phone Alice Saldaña PA-C Primary Care Provider [phone] Pcp, No Primary Care Provider Unavailabl e Encounter Details Date Type Department Care Team (Late st Contact Info) Description 02/10/2016 Scanned Document [facility] [address] [place] [phone] Alice Saldaña PA-C 136 [facility] [address] [place] [address] Social History Tobacco Use Types Packs/Day Years [...] on filedocumented in this encounter Care Teams Liability Claims Adjuster Relationship Specialty Start Date End Date Alice Saldaña PA-C PCP - General Internal Medicine 12/25/14 07/25/22 Pcp, No PCP - General General Medicine 07/26/22 documented as of this encounter
== END 2025-05-31 11:24 | disposition home or self-care (01) ==
LOC: HO.HSM 11:00
PROVIDERS: PCP Physician Assistant; Visit Provider Psychiatry & Neurology Neurology
DX: M54.16 Radiculopathy, lumbar region (principal)
CPT/HCPCS: 99203